=== PATIENT | female | born 1990 | race American Indian/Alaskan Native ===

== ENCOUNTER 2019-12-26 10:40 | Emergency (ER) | payer OTHER ==
--- NOTE | 2019-12-26 11:34 | RAD ---
Portable frontal chest radiograph: 12/26/2019 COMPARISON: None HISTORY: Cough, abnormal breath sounds, clinical concern for Covid pneumonia FINDINGS: Lungs are clear. Heart and mediastinal contours appear within normal limits. IMPRESSION: No acute findings. If clinical concern for Covid pneumonia persists, follow-up chest x-ra y or CT suggested.
[2019-12-26] MEDS ORDERED: Acetaminophen 325 MG TAB ONE (12:07)
[2019-12-26] MEDS ORDERED: HYDROcodone/Acetaminophen 5/325 mg Tablet ONE (12:07)
[2019-12-26] MEDS ORDERED: cefTRIAXone\\ROCEPHIN 1 GM VIAL ONE (12:07)
[2019-12-26] MEDS ORDERED: Lidocaine 1% 20 ML MDV ONE (12:07)
--- NOTE | 2019-12-26 12:37 | CT ---
CT THORAX NONCONTRAST: DATE: 12/26/2019 HISTORY: 29-year-old female with cough and dyspnea. Concern for COVID-19. COMPARISON: none FINDINGS: The lungs are clear. No pleural effusion, pneumothorax, cardiomegaly, mediastinal lymphadenopathy, or thoracic aortic aneurysm. No major osseous abnormality. Trachea and major bronchi are patent and clear. IMPRESSION: Normal noncontrast chest CT area
[2019-12-27 12:55] LABS: SARS-CoV-2 MS2 Positive; SARS-CoV-2 N Gene Negative; SARS-CoV-2 S Gene Negative; SARS-CoV-2 by NAA Not Detected (NotDetected); SARS-CoV-2 orf1ab Negative
== END 2019-12-26 13:00 | disposition home or self-care (01) ==
LOC: MADERS 10:40
DX: K04.7 Periapical abscess without sinus (principal); K02.9 Dental caries, unspecified; R11.2 Nausea with vomiting, unspecified; R05 Cough; Z20.828 Contact with and (suspected) exposure to other viral communicable diseases
CPT/HCPCS: 71045; 71250; 87635; 87804; 96372; J0696; U0003

== ENCOUNTER 2020-02-03 09:12 | Emergency (ER) | payer OTHER ==
[2020-02-03] MEDS ORDERED: Acetaminophen 500 MG TAB ONE (09:48)
--- NOTE | 2020-02-03 10:01 | RAD ---
XR Chest Pa Lat STANDARD History: Cough Comparison: Radiograph December 26, 2019 Findings: Lungs are clear. No pneumothorax. No effusion. Cardiac silhouette and mediastinal contours are within normal limits. No acute osseous abnormality. The costophrenic sulci are somewhat effaced due to the arms being down the patient's side on the PA r adiograph. Impression: No acute intrathoracic abnormality.
[2020-02-04 18:56] LABS: SARS-CoV-2 MS2 Positive; SARS-CoV-2 N Gene Negative; SARS-CoV-2 S Gene Negative; SARS-CoV-2 by NAA Not Detected (NotDetected); SARS-CoV-2 orf1ab Negative
== END 2020-02-03 10:45 | disposition home or self-care (01) ==
LOC: MADERS 09:12
DX: R05 Cough (principal); R51 Headache; R11.0 Nausea; R53.1 Weakness; Z20.828 Contact with and (suspected) exposure to other viral communicable diseases; F41.9 Anxiety disorder, unspecified; F31.9 Bipolar disorder, unspecified; F43.10 Post-traumatic stress disorder, unspecified; Z79.899 Other long term (current) drug therapy
CPT/HCPCS: 71046; 87635; U0003

== ENCOUNTER 2020-04-02 19:49 | Emergency (ER) | payer SELFPAY ==
--- NOTE | 2020-04-02 20:59 | RAD ---
RIGHT KNEE FOUR VIEWS: 04/02/20 HISTORY: Fall with knee injury. There is no signs of fracture, dislocation or joint effusion. IMPRESSION: Negative right knee. POS: ROBER[facility]
--- NOTE | 2020-04-02 21:06 | RAD ---
LUMBAR SPINE SERIES THREE VIEWS: 04/02/20 HISTORY: Fall with back pain. Vertebral bodies and disc spaces are normal in appearance. Pedicles are intact. No spondylolisthesis. IMPRESSION: Unremarkable lumbar spine series. POS: ROBERTH
--- NOTE | 2020-04-02 21:15 | RAD ---
LEFT KNEE FOUR VIEWS: 04/02/20 HISTORY: Knee pain status post fall. There is no signs of fracture, dislocation or joint effusion. IMPRESSION: Negative left knee. POS: ROBER[facility]
== END 2020-04-02 21:27 | disposition home or self-care (01) ==
LOC: MADERS 19:49
DX: M25.562 Pain in left knee (principal); M25.561 Pain in right knee; M54.6 Pain in thoracic spine; F31.9 Bipolar disorder, unspecified; F41.9 Anxiety disorder, unspecified; F17.210 Nicotine dependence, cigarettes, uncomplicated; Z79.899 Other long term (current) drug therapy
CPT/HCPCS: 72100